=== PATIENT | female | born 1970 | race Caucasian/White ===

== ENCOUNTER 2021-07-22 07:58 | Emergency (ER) | payer OTHER ==
[~2021-07-22] VITALS: Ht 162.6 cm; Wt 51.7 kg
[2021-07-22 10:26] LABS: ABSOLUTE BASOPHILS 0.1 thou/uL (0.0-0.2); ABSOLUTE EOSINOPHILS 0.3 thou/uL (0.0-0.7); ABSOLUTE LYMPHOCYTES 1.5 thou/uL (0.8-5.3); ABSOLUTE MONOCYTES 0.7 thou/uL (0.0-1.2); ABSOLUTE NEUTROPHILS 7.1 thou/uL (1.6-8.1); BASOPHILS 0.6 %; EOSINOPHILS 3.6 %; HEMATOCRIT 43.5 % (37.0-47.0); HEMOGLOBIN 14.7 gm/dL (12.0-15.0); LYMPHOCYTES 15.5 %; MCH 33.4 pg (26.0-34.0); MCHC 33.8 g/dL (28.0-37.0); MCV 98.6 fL (80.0-100.0); MONOCYTES 7.3 %; MPV 7.7 fl. (7.2-11.1); NUCLEATED RBCS 0 /100WBC; PLATELET COUNT* 408 thou/uL (150-400); RBC 4.41 mil/uL (4.20-5.00); RDW-CV 13.8 % (10.5-14.5); WBC 9.7 thou/uL (4.0-11.0)
[2021-07-22 10:47] LABS: CALCIUM 9.1 mg/dL (8.5-10.1); CREATININE 0.8 mg/dL (0.6-1.3); POTASSIUM 4.5 mmol/L (3.5-5.1)
[2021-07-22 10:51] LABS: ALBUMIN 4.3 g/dL (3.4-5.0); TOTAL BILIRUBIN 0.7 mg/dL (<0.1-1.0)
[2021-07-22] MEDS ORDERED: FLEXERIL PO (12:44)
[2021-07-22 12:51] VITALS: BP 138/99
--- NOTE | 2021-07-22 17:02 | EKG ---
[place] [address] ELECTROCARDIOGRAM REPORT Name: RAMSES GLEASON Marni Room: [facility]#: [id number] Admission: 07/22/21 Attend Phys: Discharge: 07/22/21 Date of : 72 Date of Service: 07/22/21814 Report #: [id number] THIS REPORT FOR: //name// [facility] ED Test Date: 2021-07-22 Test Time: 08:15:35 Pat Name: RAMSES GLEASON Department: Room: Gender: F [place] [employer]: JEAN : 1970 Requested By: Rivas Huffman Order Number: [id number] MD: Danis Malone Measurements Intervals [place] Rate: 75 P: 85 AL: 134 QRS: 103 QRSD: 88 T: 65 QT: 363 QTc: 406 Interpretive Statements Sinus rhythm Right axis deviation No previous ECG available for comparison Electronically Signed On 07-22-2021 17:02:19 CDT by Danis Malone [email or web address] <ELECTRONICALLY SIGNED> By: Danis Malone MD, [facility] 07/22/211701 4 4 Danis Malone MD, FACC /EPI
== END 2021-07-22 12:52 | disposition home or self-care (01) ==
LOC: M.ERS 07:58
PROVIDERS: Emergency Medicine Emergency Medical Services
DX: R07.89 Other chest pain (principal)